=== PATIENT | male | born 1945 | race Caucasian/White ===

== ENCOUNTER 2019-10-06 15:22 | Outpatient (CLI) | payer MEDICARE, BC ==
[2019-10-06 17:37] LABS: Hemoglobin 14.7 g/dL (14.0-18.0); Mean Corpuscular HGB CONC 31.9 g/dL (32.0-36.0); Mean Corpuscular Hemoglobin 30.1 pg (27.0-31.0); Mean Corpuscular Volume 94.2 fL (78.0-98.0); Mean Platelet Volume 7.7 fL (7.4-10.4); Platelet Count 247 thou/uL (130-400); RBC Distribution Width 12.7 % (11.5-14.5); White Blood Cell (WBC) Count 8.4 thou/uL (4.8-10.8)
[2019-10-06 17:42] LABS: PTT 31.8 SEC (22.9-36.1); Prothrombin Time 13.1 SEC (12.0-14.7)
[2019-10-06 17:55] LABS: Anion Gap 13 mmol/L (10-20); BUN (Urea Nitrogen) 16 mg/dL (8.4-25.7); Calc. Creatinine Clearance 0 mL/min (70-130); Calcium 9.3 mg/dL (7.8-10.44); Carbon Dioxide 25 mmol/L (23-31); Chloride 108 mmol/L (98-107); Estimated GFR-MDRD 85; Glucose 105 mg/dL (83-110); Potassium 3.9 mmol/L (3.5-5.1); Sodium 142 mmol/L (136-145)
== END 2019-10-06 15:23 | disposition home or self-care (01) ==
LOC: LABBT 15:22
PROVIDERS: ATTEND Urology
DX: Z01.818 Encounter for other preprocedural examination (principal); N13.8 Other obstructive and reflux uropathy; N40.1 Benign prostatic hyperplasia with lower urinary tract symptoms; G47.33 Obstructive sleep apnea (adult) (pediatric)
CPT/HCPCS: 80048; 81001; 85027; 85610; 85730; 87086; 93005; 93010

== ENCOUNTER 2019-10-15 08:03 | Day surgery (SDC) | payer MEDICARE, BC ==
[2019-10-06 16:22] VITALS: BMI 37.1
[2019-10-15] MEDS ORDERED: Levofloxacin 500 mg/D5W 100 ml Premix Bag ONE (09:27)
[2019-10-15] MEDS ORDERED: Fentanyl 100 MCG/2 ML VIAL ONE (10:11)
[2019-10-15] MEDS ORDERED: PROPOFOL 60 ML ONE (10:11)
[2019-10-15] MEDS ORDERED: PROPOFOL 200 MG/20 ML VIAL ONE (10:20)
[2019-10-15] MEDS ORDERED: Lidocaine 1% PF 5 ML VIAL ONE (10:20)
--- NOTE | 2019-10-15 16:00 | OP ---
DATE OF PROCEDURE: 10/15/2019 SERVICE: Urology. PREOPERATIVE DIAGNOSIS: BPH with urinary obstruction. POSTOPERATIVE DIAGNOSIS: BPH with urinary obstruction. PROCEDURE PERFORMED: UroLift with eight implants. INDICATIONS FOR PROCEDURE: Mr. Toussaint is a 74-year-old white male with BPH and trilobar hyperplasia. He is currently on medication, but states he would rather do a UroLift for better flow and to get off medication. Risks and benefits of procedure were discussed, and he has agreed to proceed forward. DESCRIPTION OF PROCEDURE: After identification of armband and verification of consent, the patient was brought back to the operating room. He underwent total intravenous anesthesia. He was then placed in dorsal lithotomy position and prepped and draped in usual sterile fashion. After appropriate time-out, a 21-Azerbaijani rigid cystoscope with visual obturator for the UroLift was advanced through the urethra into the prostate, which appeared obstructive based on prior cystoscopy. Passage was then gained into the bladder. The visual obturator was switched out for the first UroLift implant device. The first implant was placed in the patient's proximal left prostate by positioning the UroLift to the bladder neck and then coming back 1.5 cm. Lateral compression was achieved by about 20 degrees of compression and downward angulation outside the patient's body to lift the prostate up. Once the compression and positioning were correct, the safety was released, and the capsular end-piece deployed by squeezing the blue trigger. The tension and capsular end-piece were then set using the ruiz trigger and then the UroLift advanced forward until the white line was in the keyhole, at which point the urethral end-piece was deployed using the ruiz release on the back. This resulted in nice compression of the lateral lobe. The same was then done on the patient's right proximal prostate and 2 additional implants placed at the right and left apical prostate. This resulted in very nice compression of the lateral prostate. Although there was a mild bulge on the patient's right side, it did not seem very obstructive, and I elected to leave this for now. There was a fairly large obstructive median lobe, which still did block most of the patient's prostatic urethra. It was not intravesical, but just bulging within the prostatic urethra. We elected to treat this, and the UroLift was initially positioned at the bladder neck and used to sweep the median lobe to the patient's left. The initial implant for the median lobe was placed approximately a centimeter away from the bladder neck using the same technique described earlier. A 2nd piece was then deployed proximal to this, but due to mispositioning, it appeared that the 2nd end-piece would end up almost on top of the 1st median lobe implant. Therefore, we elected to abort, and the suture was cut using the release mechanism built into the UroLift device. This did not result in deployment of a urethral end-piece. That UroLift was discarded, and a 2nd median lobe implant was done more proximal to where the original one which was discarded was by sweeping the median lobe to the left and then firing the implant in position, which resulted in very nice compression of the median lobe off to the left. Looking at the prostatic urethra, at this point, it did appear fairly wide open, but there was still a little bit of a bulge, which was described earlier on the patient's right. I elected to treat this as well, and a final UroLift device was brought in and compressing on the lateral lobe of the right prostate between the two previously placed implants, which resulted in very nice compression of the right lateral lobe resulting in a wide-open prostatic urethra. There was some splitting of the urethra during manipulation of the median lobe. Therefore, I elected to leave a Rizo, and the patient will probably go home with this. The UroLift and cystoscope were then removed, and an 18-Azerbaijani Rizo catheter placed in the patient's bladder. 10 mL of sterile water placed into the balloon. This was left to gravity drainage and secured with a StatLock. The patient was then awakened, taken out of positioning, and taken to Day Stay in stable condition. COMPLICATIONS: None. ESTIMATED BLOOD LOSS: Minimal. RETAINED TUBES AND DRAINS: An 18-Azerbaijani Rizo catheter. SPECIMENS: Eight UroLift implants. One was aborted mid procedure, so there is no urethral end-piece for this. DISPOSITION: The patient will go home with his Rizo catheter. He will come back on Friday for a void trial. We will then follow his care on an outpatient basis. Job ID: [id number]
== END 2019-10-15 13:30 | disposition home or self-care (01) ==
LOC: SDC 08:03
PROVIDERS: ATTEND Urology
PROC: 0T7D8DZ Dilation of Urethra with Intraluminal Device, Via Natural or Artificial Opening Endoscopic (ICD-10-PCS; principal; 2019-10-15)
DX: N40.1 Benign prostatic hyperplasia with lower urinary tract symptoms (principal); N13.8 Other obstructive and reflux uropathy; R35.1 Nocturia; R39.12 Poor urinary stream; K21.9 Gastro-esophageal reflux disease without esophagitis; G47.33 Obstructive sleep apnea (adult) (pediatric); Z79.899 Other long term (current) drug therapy; Z88.1 Allergy status to other antibiotic agents
CPT/HCPCS: C1889; C9740; J1956; J2001; J2704; J3010

== ENCOUNTER 2022-09-11 10:51 | Emergency (ER) | payer MEDICARE, BC ==
[2022-09-11 13:13] LABS: #Eosinphils 0.2 thou/uL (0.0-0.7); #Lymphocytes 1.6 thou/uL (1.20-3.40); #Monocytes 0.7 thou/uL (0.11-0.59); #Neutrophils 5.5 thou/uL (1.40-6.50); %Basophils 0.3 % (0.0-1.0); %Eosinophils 2.4 % (0.0-10.0); %Lymphocytes 20.3 % (21.0-51.0); %Monocytes 8.7 % (0.0-10.0); %Neutrophils 68.3 % (42.0-75.0); Mean Corpuscular HGB CONC 33.6 g/dL (32.0-36.0); Mean Corpuscular Hemoglobin 31.7 pg (27.0-31.0); Mean Corpuscular Volume 94.4 fl (78.0-98.0); Mean Platelet Volume 7.3 fL (7.4-10.4); Platelet Count 251 10x3/uL (130-400); RBC Distribution Width 12.4 % (11.5-14.5); Red Blood Cell (RBC) Count 5.04 mill/uL (4.70-6.10)
[2022-09-11 13:34] LABS: ALT (SGPT) 39 U/L (8-55); AST (SGOT) 30 U/L (5-34); Albumin 4.5 g/dL (3.4-4.8); Alkaline Phosphatase 77 U/L (40-110); Anion Gap 14 mmol/L (10-20); BUN (Urea Nitrogen) 12 mg/dL (8.4-25.7); Bilirubin, Total 0.6 mg/dL (0.2-1.2); Calc. Creatinine Clearance 0 mL/min (70-130); Calcium 9.8 mg/dL (7.8-10.44); Carbon Dioxide 24 mmol/L (23-31); Chloride 104 mmol/L (98-107); Estimated GFR 84; Globulin 3.1 g/dL (2.4-3.5); Glucose 124 mg/dL (83-110); Potassium 4.3 mmol/L (3.5-5.1); Protein, Total 7.6 g/dL (5.8-8.1); Sodium 138 mmol/L (136-145)
[2022-09-11] MEDS ORDERED: Aspirin Chewable 81 MG TAB ONE (14:50)
== END 2022-09-11 15:18 | disposition home or self-care (01) ==
LOC: ERS 10:51
DX: R20.2 Paresthesia of skin (principal)
CPT/HCPCS: 36415; 70450; 80053; 84484; 85025; 93005